=== PATIENT | female | born 1995 | race Caucasian/White ===

== ENCOUNTER 2024-11-27 02:53 | Emergency (ER) | payer BC, SELFPAY ==
[2024-11-27] VITALS (7 sets, daily range): BP systolic 117–133; BP diastolic 73–92; PULSE 70–85; BMI 31.5
--- NOTE | 2024-11-27 03:15 | ED.GENMED ---
History of Present Illness
General
Chief Complaint: Fainting/Passed Out
Source: patient
Exam Limitations: none
Time Seen by Provider: 11/27/24 03:13
Nursing documentation reviewed up to this point in time: agreed with
History of Present Illness
History of Present Illness:
29-year-old female with a past medical history of acne, anxiety, depression, presents to the emergency department today with concerns of a syncopal episode. She reports that approximately 1 hour prior to the visit, the patient woke up to go urinate
and when she was sitting on the toilet, she experienced lightheadedness, dizziness and felt blurry vision. She woke up seconds later on the floor. She fell off the toilet. She not hit her head. She has no headache at this time, no neck pain.
Her partner heard a thud and came to check on her noticed that she was on the ground but awake and responsive. Patient does have a history of low blood pressure and is on spironolactone which she was told can cause dizziness. She reports that
sometimes when she stands up she will feel dizzy and this is not a new problem for her. Patient also reports that she has been taking fluoxetine 10 mg for anxiety along with allergy medication fiber, vitamin C and multivitamin she denies any new
medications. Currently, she feels well and is not dizzy or lightheaded. She denies any chest pain or shortness of breath. She denies any vaginal bleeding or abdominal pain. She denies palpitations. No family history of significant cardiac
disease. Patient has never had a syncopal episode in the past. Of note, patient reports low back pain around the sacrum that started 2 days ago after lifting improperly during exercise at the gym specifically while performing crunches and doing
heavy lifting. The patient denies paresthesias in the genital region, urinary or fecal incontinence. She denies difficulties ambulating, numbness or tingling rating down both legs. Of note, she does report that when she woke up to use bathroom,
she did feel some pain in her low back near when the episode happened.
Review of Systems
Review of Systems
All Other Systems: ROS reviewed and negative except as documented in HPI and ROS
Phy Exam
Physical Exam
Physical Exam:
General: Patient is well appearing and in no acute distress; non-toxic
Skin: Warm and dry, no rashes or lesions
No cut or abrasion I am able to observe to lips or face
Head: Normocephalic, atraumatic
Neck: No midline spinal tenderness
Eyes: Sclera non-icteric. EOMs intact. No nystagmus.
Cardiac: Regular rate and rhythm, no murmurs
Peripheral Vascular: No lower extremity swelling or edema
Pulm: Normal respiratory effort, no wheezes, rales, rhonchi
Musculoskeletal: No midline spinal tenderness, tenderness about the sacral region
Abdomen: No abdominal tenderness to palpation
Neuro: CN II-XII intact, no focal neurologic deficits. Normal finger-nose, heel rojas.
Psychiatric: Appropriate mood and affect.
Course
Orders/Labs/Results
Orders:
Orders
11/27/24 03:34
Cardiac Monitoring- Treatment ONCE
Orthostatic VS- Treatment ONCE
11/27/24 03:36
Electrocardiogram (*1) Urgent
Reason for Study: Syncope
Test Result ONCE
11/27/24 04:19
Complete Blood Count/With Diff Urgent
Comprehensive Metabolic Panel Urgent
HCG, Serum Qualitative Screen Urgent
Abnormal Lab Results
11/27/24
04:19
MCHC 32.4 L g/dL
(33.0-37.0)
Abs Immat Gran (auto) 0.1 H 10^3/uL
(0-0.05)
Absolute Neuts (auto) 6.7 H 10^3/uL
(1.4-6.5)
Immature Gran % 0.6 H %
(0-0.5)
Glucose 107 H mg/dl
(70-99)
11/27/24 04:19
11/27/24 04:19
Vital Signs
Initial and Last Documented VS:
Initial Vital Signs
Temp Pulse Resp BP Pulse Ox
97.8 F 84 18 130/90 100
11/27/24 02:59 11/27/24 02:59 11/27/24 02:59 11/27/24 02:59 11/27/24 02:59
Last Documented Vital Signs
Temp Pulse Resp BP Pulse Ox
97.8 F 79 12 120/82 99
11/27/24 02:59 11/27/24 05:34 11/27/24 05:34 11/27/24 06:10 11/27/24 05:34
MDM/Problems Addressed
Differential Diagnosis Includes:
ddx include Cardiac arrhythmia, vasovagal syncope, orthostatic hypotension, electrolyte derangement, lumbosacral sacral sprain
MDM/Problems Addressed:
29-year-old female with a past medical history of acne, anxiety, depression, presents to the emergency department today with concerns of a syncopal episode. She reports that approximately 1 hour prior to the visit, the patient woke up to go urinate
and when she was sitting on the toilet, she experienced lightheadedness, dizziness and felt blurry vision. She woke up seconds later on the floor. She fell off the toilet. She not hit her head. She has no headache at this time, no neck pain.
On physical exam, she is well-appearing no acute distress. Labs reviewed, CBC and CMP unremarkable. No evidence electrolyte derangement. ECG shows normal sinus rhythm with no arrhythmia. Telemetry monitoring reviewed while patient has been here
no arrhythmia. On reassessment, patient is feeling well no symptoms at this time. I suspect vasovagal syncope related to micturition versus pain from lumbosacral sprain. Patient stable for discharge. PAtient stable for discharge. Discussed strict
return precautions.
*Pulse Oximetry
SaO2: 100
Oxygen Mode of Delivery: Room air
Patient hypoxic: no
*Critical Care Note
Total Time (30-74mins, 75-104mins- exclusive of procedures): Not Applicable
ED Attending Note
-
Portions of this chart may have been created with voice recognition software.� Occasional wrong word or��sound alike� substitutions may have occurred due to the inherent limitations of voice recognition software.
Discharge Plan
Departure
Patient Disposition: Home (Routine Discharge)
Date of Disposition: 11/27/24
Time of Disposition: 06:05
Patient with high blood pressure during this ER visit?: Yes
Condition: Good
Discharge Problem:
Vasovagal syncope, Sprain, lumbosacral
Instructions: Syncope (Fainting) (DC), Low back pain - ED (DC), BLOOD PRESSURE
Prescriptions:
New
cyclobenzaprine 15 mg capsule,extended release 24hr
15 mg PO HS PRN (Reason: muscle spasm) Qty: 10 0RF
Referrals:
Fifi Palafox MD [Family Provider, Family Practice]
Manjit Jimenez MD [Active, Orthopedics]
Activity Restrictions/Additional Instructions:
Please continue to take ibuprofen as needed for pain. For spastic pain, you can try taking dose of muscle relaxant before bed.
Please continue to monitor your symptoms and follow-up with your primary care provider.
PLEASE RETURN TO THE ER SHOULD YOU DEVELOP URINARY OR FECAL INCONTINENCE, NUMBNESS OR TINGLING IN GENITAL REGION, FEVERS OR CHILLS, INABILITY AMBULATE, NUMBNESS AND TINGLING RATING DOWN THE LEGS, INTRACTABLE NAUSEA OR VOMITING, CHEST PAIN, SHORTNESS
OF BREATH, OR ANY OTHER SIGNS OR SYMPTOMS WORRISOME TO YOU.
Interventions
Interventions:
*Risk Screen - Suicide Last Done: 11/27/24 02:59
*General Assessment Last Done: 11/27/24 04:02
*Neglect/Abuse Screening Last Done: 11/27/24 02:59
*ED- Fall Risk Assessment Last Done: 11/27/24 04:02
*ED COVID-19 Vaccine History Last Done: 11/27/24 04:02
*ED Influenza Vaccine History Last Done: 11/27/24 04:02
*Nursing Disposition Last Done: 11/27/24 06:16
ED- Cardiac Assessment Last Done: 11/27/24 04:20
ED- Neurological Assessment Last Done: 11/27/24 04:20
Discharge Date and Time
Discharge Date/Time: 11/27/24 06:18
Print Language: SERBIAN
[2024-11-27 04:36] LABS: Hematocrit 40.1 % (37.0-47.0); Hemoglobin 13.0 g/dL (12.0-16.0); Mean Corp Hgb Conc. 32.4 g/dL (33.0-37.0); Mean Corpuscular Volume 93.7 fL (81.0-99.0); Nucleated Red Blood Cells % 0 %; Platelet Count 322 10^3/uL (130-400); Red Cell Dist. Width 12.5 % (11.5-14.5)
[2024-11-27 04:41] LABS: HCG, Serum Qualitative Screen Negative
[2024-11-27 05:13] LABS: ALT (SGPT) 34 U/L (0-35); AST (SGOT) 28 U/L (14-36); Albumin 4.3 g/dl (3.5-5.0); Alkaline Phosphatase 70 U/L (38-126); Blood Urea Nitrogen 13 mg/dl (7-17); Calcium 9.6 mg/dl (8.4-10.2); Carbon Dioxide 26 mmol/L (22-30); Chloride 103 mmol/L (98-107); Estimated Creatinine Clearance > 125 ml/min; Glucose 107 mg/dl (70-99); Potassium 4.3 mmol/L (3.5-5.1); Sodium 138 mmol/L (135-145); Total Protein 7.2 g/dl (6.3-8.2); eGFR > 60.00
== END 2024-11-27 06:18 | disposition home or self-care (01) ==
LOC: EMR 02:53
PROVIDERS: Physician Assistant; EMERGENCY PHYSICIAN Emergency Medicine; FAMILY PHYSICIAN Family Medicine
DX: R55 Syncope and collapse (principal); S33.5XXA Sprain of ligaments of lumbar spine, initial encounter; R03.0 Elevated blood-pressure reading, without diagnosis of hypertension; I95.9 Hypotension, unspecified; F41.9 Anxiety disorder, unspecified; F32.A Depression, unspecified; X50.0XXA Overexertion from strenuous movement or load, initial encounter; Y93.B9 Activity, other involving muscle strengthening exercises; Y92.39 Other specified sports and athletic area as the place of occurrence of the external cause
CPT/HCPCS: 99284; 80053; 84703; 85025; 93005